=== PATIENT | female | born 1990 | race Caucasian/White ===

== ENCOUNTER 2018-01-14 09:39 | Emergency (ER) | payer OTHER ==
[~2018-01-14] VITALS: Ht 152.4 cm; Wt 109.8 kg
[2018-01-14 09:41] VITALS: Ht 152.4 cm; Wt 109.8 kg
[2018-01-14 14:27] VITALS: BP 126/79
== END 2018-01-14 14:28 | disposition home or self-care (01) ==
LOC: ED 09:39
DX: N93.8 Other specified abnormal uterine and vaginal bleeding (principal); E66.9 Obesity, unspecified; Z68.42 Body mass index [BMI] 45.0-49.9, adult; Z97.5 Presence of (intrauterine) contraceptive device
CPT/HCPCS: Q0092

== ENCOUNTER 2018-07-08 20:53 | Emergency (ER) | payer OTHER ==
[~2018-07-08] VITALS: Ht 152.4 cm; Wt 104.3 kg
[2018-07-08 21:22] VITALS: Ht 152.4 cm; Wt 104.3 kg
[2018-07-08 23:36] VITALS: BP 136/81
== END 2018-07-08 23:36 | disposition home or self-care (01) ==
LOC: ED 20:53
DX: S83.92XA Sprain of unspecified site of left knee, initial encounter (principal); W18.39XA Other fall on same level, initial encounter; Y93.66 Activity, soccer; Y92.322 Soccer field as the place of occurrence of the external cause; Y99.8 Other external cause status

== ENCOUNTER 2019-04-28 11:53 | Emergency (ER) | payer OTHER ==
[~2019-04-28] VITALS: Ht 160 cm; Wt 108.9 kg
[2019-04-28 12:24] VITALS: Ht 160 cm; Wt 108.9 kg
[2019-04-28 13:06] LABS: BASOPHIL % 0.5 % (0-2); PLATELET COUNT 231 x10^3mcL (130-400); RED CELL DISTRIBUTION WIDTH 13.1 % (11.5-14.5)
[2019-04-28 13:38] LABS: UA SPECIFIC GRAVITY <=1.005 (1.005-1.035); microscopic required? YES; urine erythrocyte 2+ (NEGATIVE)
[2019-04-28 14:04] VITALS: BP 136/85
== END 2019-04-28 14:33 | disposition home or self-care (01) ==
LOC: ED 11:53
PROVIDERS: Emergency Medicine
DX: O20.0 Threatened abortion (principal)
CPT/HCPCS: 36415